=== PATIENT | female | born 1975 | race Caucasian/White ===

== ENCOUNTER 2016-11-10 13:54 | Emergency (ER) | payer BC ==
--- NOTE | 2016-11-10 14:14 | ED Physician Chart ---
Chief Complaint/HPI - Patient Information Date Seen:: 11/10/16 Time Seen:: 14:00 Chief Complaint:: Right Lower Ribs Trauma History of Present Illness:: Onset x one day of right lower anterior rib cage pain after another person fell on the pt's right lower anterior rib cage region one day ago; no chest pain, dyspnea, abdominal pain, A/N/V/D/C, fevwer, chills, cough, neck pain, H/As, paresthesias, weakness, dizziness, vertigo, LOC, ALOC,syncope, near-syncope; no hemoptysis, hematemesis, melena, hematochezia; pt's last tetanus shot: < 5 years ; UTD Allergies:: Allergies Allergy/AdvReac Type Severity Reaction Status Date / Time No Known Allergies Allergy Verified 11/10/16 14:05 Historian:: Patient, Family Member Review:: Nurse's Note Reviewed Review of Systems - Review of Systems General/Constitutional: Fever, Chills, No weight loss, Weakness, No diaphoresis , No edema, No loss of appetite Skin: No skin lesions, No rash, No bruising Head: No headache, No light-headedness Eyes: No loss of vision, No pain, No diplopia ENT: No earache, Nasal drainage, No sore throat, No tinnitus Neck: No neck pain, No swelling, No thyromegaly, No stiffness, No mass noted Cardio Vascular: No chest pain, No palpitations, No PND, No orthopnea, No edema Pulmonary: No SOB, Cough, No sputum, No wheezing GI: Nausea, Vomiting, Diarrhea, No pain, No melena, No hematochezia, No constipation, No hematemesis G/U: No dysuria, No frequency, No hematuria Facility Designer: Abnormal vaginal bleeding, No contraction Musculoskeletal: No bone or joint pain, No back pain, No muscle pain Endocrine: No polyuria, No polydipsia Psychiatric: No prior psych history, No depression, No anxiety, No suicidal ideation Hematopoietic: No bruising, No lymphadenopathy Allergic/Immuno: No urticaria, No angioedema Neurological: No syncope, No focal symptoms, Weakness, No paresthesia, No headache, No seizure, No dizziness, No confusion, No vertigo Past Medical History - Past Medical History Past Medical History: Dyslipidemia Family History: HTN Social History: Non Smoker, No Alcohol, No Drug Use Surgical History: Cholecystectomy, , Hernia Psychiatricy History: None Medication: Reviewed Family Medical History - Family Member Father Hx Family Coronary Artery Disease: Yes Hx Family Hypertension: Yes Physical Exam - Physical Examination General/Constitutional: Awake, Well-developed, well-nourished, Alert, No distress, GCS 15, Non-toxic appearing, Ambulatory Head: Atraumatic Eyes: Lids, conjuctiva normal, PERRL, EOMI Skin: Nl inspection, No rash, No skin lesions, No ecchymosis, Well hydrated, No lymphadenopathy ENMT: External ears, nose nl, Nasal exam nl, Lips, teeth, gums nl Neck: Nontender, Full ROM w/o pain, No JVD, No nuchal rigidity, No bruit, No mass, No stridor Respiratory: Nl effort/Exclusion, Clear to Auscultation, No Wheeze/Rhonchi/Rales Cardio Vascular: RRR, No murmur, gallop, rubs, NL S1 S2 GI: No tenderness/rebounding/guarding, No organomegaly, No hernia, Normal BS's, Nondistended, No mass/bruits, No McBurney tenderness : No CVA tenderness Extremities: No tenderness or effusion, Full ROM, normal strength in all extremities, No edema, Normal digits & nails Neuro/Psych: Alert/oriented, DTR's symmetric, Normal sensory exam, Normal motor strength, Judgement/insight normal, Mood normal, Normal gait, No focal deficits Misc: normal gait, Normal back, No paraspinal tenderness Other Misc comments:: Right Anterior Lower Rib Cage Tenderness; no crepitus, swelling, ecchymosis, or erythema; no wounds; no abrasions; no FBs Labs/Radiology/EKG Results - Lab Results Results: UCG: Negative - Radiology Results Results: X-Rays: Hairline Fracture of the Right Tenth Rib ED Septic Shock - . Is Septic Shock (SBP<90, OR Lactate>4 mmol\L) present?: No Reassessment (Disposition) - Reassessment Reassessment Condition:: Improved - Diagnosis Diagnosis:: Rib Fracure; Rib Injury; Rib Pain; Rib Trauma - Aftercare/Follow up Instructions Aftercare/Follow-Up Instructions:: Counseled pt regarding lab results/diagnosis & need follow up, Refer to Discharge Instructions, Counseled pt & family regarding lab results/diagnosis & need follow up Medication Prescribed:: Rx: Acetamenophen 500mg po qid prn pain; Ice Packs - Patient Disposition Discharge/Transfer:: Home Condition at Disposition:: Stable, Improved (RTER prn if existing s/s reoccur and/or get worse and/or any other new s/s occur; ACIs given for all Dx; X-Rays Instructions; refer to Trauma Surgeon/Tarp Repairer REDD; F/U with PMD in one day or prn; RTER prn if concerned)
--- NOTE | 2016-11-11 11:44 | Diagnostic Imaging Report ---
Chest x-ray 2 views HISTORY:Pain, trauma The overall heart size is normal. No focal pulmonary processes. No hilar or mediastinal abnormalities. IMPRESSION: No acute abnormalities.
--- NOTE | 2016-11-11 11:45 | Diagnostic Imaging Report ---
Right RIBS (3 views) HISTORY: Pain, trauma Exam demonstrates mildly displaced fracture involving the posterior lateral aspect of the right fifth rib. No acute pulmonary parenchymal or pleural abnormalities. IMPRESSION: 1. Mildly displaced fracture involving the posterior lateral aspect of the right fifth rib
== END 2016-11-10 15:40 | disposition home or self-care (01) ==
LOC: ER 13:54
DX: S22.31XA Fracture of one rib, right side, initial encounter for closed fracture (principal); E78.5 Hyperlipidemia, unspecified; Z90.49 Acquired absence of other specified parts of digestive tract; X58.XXXA Exposure to other specified factors, initial encounter; Y93.89 Activity, other specified; Y92.89 Other specified places as the place of occurrence of the external cause; Y99.8 Other external cause status
CPT/HCPCS: 99285; 96372; 71020; 71101; 81025; J1885

== ENCOUNTER 2017-08-17 21:21 | Emergency (ER) | payer BC ==
[2017-08-17 21:47] LABS: URINE MICROSCOPIC INDICATED? YES; URINE SOURCE CLEAN C
--- NOTE | 2017-08-17 21:47 | ED Physician Chart ---
ED Chief Complaint/HPI - Patient Information Date Seen:: 08/17/17 Time Seen:: 21:35 Chief Complaint:: dysuria History of Present Illness:: Patient developed dysuria and urinary frequency yesterday. No nocturia. Patient felt slightly warm. No back pain. No vomiting. Allergies:: Allergies Allergy/AdvReac Type Severity Reaction Status Date / Time No Known Allergies Allergy Verified 11/10/16 14:05 Vitals:: Vital Signs - 8 hr 08/17/17 21:25 Temp 97.7 F HR 69 RR 18 BP 114/75 O2 Sat % 100 Historian:: Patient Review:: Nurse's Note Reviewed ED Review of Systems - Review of Systems General/Constitutional: No fever, No chills Skin: No skin lesions Head: No headache Eyes: No loss of vision ENT: No earache Neck: Neck pain, No swelling Cardio Vascular: No chest pain, No palpitations Pulmonary: No SOB GI: No nausea, No vomiting, No diarrhea G/U: Dysuria, Frequency Musculoskeletal: No bone or joint pain, No back pain, No muscle pain Endocrine: No polyuria, No polydipsia Psychiatric: No prior psych history, No depression Hematopoietic: No bruising Allergic/Immuno: No urticaria Neurological: No syncope ED Past Medical History - Past Medical History Past Medical History: No significant medical hx Family History: Heart disease Social History: Non Smoker, Alcohol, Other (occasional alcohol) Surgical History: Cholecystectomy, , other (2 sections; hernia repair) Psychiatricy History: None Medication: None Family Medical History - Family Member Father Hx Family Coronary Artery Disease: Yes Hx Family Hypertension: Yes ED Physical Exam - Physical Examination General/Constitutional: Well-developed, well-nourished, Alert, No distress Head: Atraumatic Eyes: Lids, conjuctiva normal Skin: Nl inspection, No rash ENMT: External ears, nose nl Neck: No nuchal rigidity Respiratory: Nl effort/Exclusion, Clear to Auscultation, No Wheeze/Rhonchi/Rales Cardio Vascular: RRR, No murmur, gallop, rubs GI: No organomegaly, No hernia, Normal BS's, Nondistended, No mass/bruits Other GI comments:: 1 out of 4 suprapubic tenderness : No CVA tenderness Extremities: Normal digits & nails Neuro/Psych: No focal deficits ED Labs/Radiology/EKG Results - Lab Results Results: Laboratory Results - last 24 hr 08/17/17 08/17/17 21:32 21:32 Urine Color ORANGE Urine Clarity SLIGHT CLOUDY H Urine pH 6.5 Ur Specific O'Brien 1.025 Urine Protein >=300 Urine Glucose (UA) 250 H Urine Ketones 15 H Urine Blood LARGE H Urine Nitrate POSITIVE H Urine Bilirubin SMALL H Urine Urobilinogen >=8.0 H Ur Leukocyte Esterase MODERATE H Urine Test NEGATIVE ED Septic Shock - . Is Septic Shock (SBP<90, OR Lactate>4 mmol\L) present?: No - <6hrs of presentation: Vital Signs: Vital Signs - 8 hr 08/17/17 21:25 Temp 97.7 F HR 69 RR 18 BP 114/75 O2 Sat % 100 ED Reassessment (Disposition) - Reassessment Reassessment Condition:: Unchanged - Diagnosis Diagnosis:: Cystitis - Aftercare/Follow up Instructions Medication Prescribed:: Macrobid 100 mg twice a day for 1 week and Pyridium 100 mg #12 to take 13 times a day - Patient Disposition Condition at Disposition:: Stable, Unchanged
[2017-08-17 21:51] LABS: URINE BILIRUBIN SMALL (NEGATIVE); URINE BLOOD LARGE (NEGATIVE); URINE GLUCOSE (UA) 250 mg/dL (NEGATIVE); URINE KETONE 15 mg/dL (NEGATIVE); URINE LEUKOCYTE ESTERASE MODERATE (NEGATIVE); URINE NITRATE POSITIVE (NEGATIVE); URINE PH 6.5 (4.6 - 8.0); URINE PROTEIN >=300 mg/dL (NEGATIVE); URINE UROBILINOGEN >=8.0 E.U./dL (0.2 - 1.0)
[2017-08-17 22:03] LABS: URINE CLARITY SLIGHT CLOUDY (CLEAR); URINE COLOR ORANGE
[2017-08-17 22:18] LABS: URINE ICTOTEST NEGATIVE (NEGATIVE)
[2017-08-17 22:20] LABS: URINE EPITHELIAL CELLS OCCASIONAL /lpf (FEW); URINE RBC 50-100 /hpf (0-5)
[2017-08-17 22:21] LABS: URINE BACTERIA OCCASIONAL /hpf (NONE SEEN)
[2017-08-17 22:22] LABS: URINE WBC 25-50 /hpf (0-5)
== END 2017-08-17 22:40 | disposition home or self-care (01) ==
LOC: ER 21:21
DX: N30.90 Cystitis, unspecified without hematuria (principal)
CPT/HCPCS: 81001-TC; 81025-TC; 87086-90; Z7502